=== PATIENT | female | born 1965 | race Caucasian/White ===

== ENCOUNTER 2019-12-31 09:22 | Outpatient (CLI) | payer OTHER, SELFPAY ==
--- NOTE | 2019-12-31 09:29 | MM_ITS ---
WS: [id number] BILATERAL DIGITAL SCREENING MAMMOGRAPHY WITH CAD CLINICAL INFORMATION: SCREENING HISTORY: Screening mammogram. No current complaints. COMPARISON: TECHNIQUE: Bilateral CC and MLO views. FINDINGS: The breasts are composed of heterogeneous fibroglandular density tissue, which can limit the detectio n of small underlying mass lesions. No suspicious mass, asymmetry, calcifications, or architectural d istortion. No evidence of malignancy. Punctate and lucent centered calcifications. MM/[place] [id number] IMPRESSION: BI-RADS: 2-Benign FOLLOW UP: 1 Year Follow-up Recommend return to annual screening mammography.
== END 2019-12-31 09:23 | disposition home or self-care (01) ==
LOC: RADSHAW 09:27
PROVIDERS: PCP Electrodiagnostic Medicine; Visit Provider Obstetrics & Gynecology
DX: Z12.31 Encounter for screening mammogram for malignant neoplasm of breast (principal)
CPT/HCPCS: 77067

== ENCOUNTER → 2020-06-04 13:01 | Outpatient (BNVA) | payer OTHER, SELFPAY | PROVIDERS: PCP Electrodiagnostic Medicine; Visit Provider Obstetrics & Gynecology | DX: Z01.419 Encounter for gynecological examination (general) (routine) without abnormal findings (principal) | CPT/HCPCS: 82270 ==

== ENCOUNTER 2020-12-31 07:46 | Outpatient (CLI) | payer OTHER, SELFPAY ==
--- NOTE | 2020-12-31 07:52 | MM_ITS ---
WS: [id number] Bilateral screening digital mammogram, 12/31/2020 Clinical Data: SCREENING Comparison: 12/31/2019, 12/25/2018, 12/07/2017, 12/06/2016, 12/05/2015, 11/29/2014, 12/13/2013, 11/28/2013, , 10/22/2011, 10/19/2010, 10/13/2009, 10/10/2008, 10/05/2006, 09/23/2006. Findings: The breast parenchymal pattern shows heterogeneous density. No spiculated masses or clustered calcifi cations are seen. There are no secondary signs of carcinoma. There are small lymph nodes in both axil la. MM/[place] [id number] Impression: 1. Negative bilateral mammogram unchanged. 2. Recommend annual screening mammograms. BIRADS: 1-Negative FOLLOW UP: 1 Year Follow-up The CAD checker loader was used.
== END 2020-12-31 07:47 | disposition home or self-care (01) ==
LOC: RADSHAW 07:48
PROVIDERS: PCP Electrodiagnostic Medicine; Visit Provider Electrodiagnostic Medicine
DX: Z12.31 Encounter for screening mammogram for malignant neoplasm of breast (principal)
CPT/HCPCS: 77067

== ENCOUNTER → 2021-06-18 11:21 | Outpatient (BNVA) | payer OTHER, SELFPAY | PROVIDERS: PCP Electrodiagnostic Medicine; Visit Provider Registered Nurse Neonatal Intensive Care | DX: J02.9 Acute pharyngitis, unspecified (principal) | CPT/HCPCS: 87880 ==

== ENCOUNTER → 2021-07-10 14:10 | Outpatient (BNVA) | payer OTHER, SELFPAY | PROVIDERS: PCP Electrodiagnostic Medicine; Visit Provider Nurse Practitioner | DX: J02.9 Acute pharyngitis, unspecified (principal) | CPT/HCPCS: 87880 ==

== ENCOUNTER → 2021-08-12 15:09 | Outpatient (BNVA) | payer OTHER, SELFPAY | PROVIDERS: PCP Electrodiagnostic Medicine; Visit Provider Nurse Practitioner | DX: J02.0 Streptococcal pharyngitis (principal) | CPT/HCPCS: 87070; 87400; 87880 ==

== ENCOUNTER → 2021-08-26 11:07 | Outpatient (BNVA) | payer OTHER, SELFPAY | PROVIDERS: Visit Provider Family Medicine | DX: Z76.89 Persons encountering health services in other specified circumstances (principal); Z11.4 Encounter for screening for human immunodeficiency virus [HIV]; Z11.59 Encounter for screening for other viral diseases; Z13.220 Encounter for screening for lipoid disorders; Z13.6 Encounter for screening for cardiovascular disorders; R21 Rash and other nonspecific skin eruption | CPT/HCPCS: 80053; 80061; 83036; 84443; 85025; 86803; 87806 ==

== ENCOUNTER → 2021-09-20 10:43 | Outpatient (BNVA) | payer OTHER, SELFPAY | PROVIDERS: Visit Provider Nurse Practitioner | DX: R50.9 Fever, unspecified (principal); R11.2 Nausea with vomiting, unspecified; B34.9 Viral infection, unspecified | CPT/HCPCS: 81000; 87400; 87635 ==

== ENCOUNTER → 2021-12-09 11:45 | Outpatient (BNVA) | payer OTHER, SELFPAY | PROVIDERS: PCP Family Medicine; Visit Provider Family Medicine | DX: L43.9 Lichen planus, unspecified (principal) | CPT/HCPCS: 88304 ==

== ENCOUNTER 2022-01-06 07:30 | Outpatient (CLI) | payer OTHER, SELFPAY ==
--- NOTE | 2022-01-06 07:39 | MM_ITS ---
WS: [email or web address] Exam: [place] [id number] Date/Time of Exam: 01/06/2022 7:51 AM Reason For Exam: SCREENING VIEWS: MLO and CC views both breasts. 3D digital tomosynthesis is also included in this exam. Comparison made with prior exam of 12/05/2015, 12/06/2016, 12/07/2017, 12/25/2018, 12/31/2019, 12/31/2020.. Findings: There was no sign of mass, architectural distortion or suspicious calcification in either breast. He terogeneously dense MM/[place] [id number] Impression: BI-RADS: 2-Benign FOLLOW-UP: 1 Year Follow-up This mammogram was also analyzed by the Computer Aided Detection System R2 [facility].
== END 2022-01-06 07:31 | disposition home or self-care (01) ==
LOC: RAD 07:30
PROVIDERS: PCP Family Medicine; Visit Provider Obstetrics & Gynecology
DX: Z12.31 Encounter for screening mammogram for malignant neoplasm of breast (principal)
CPT/HCPCS: 77063; 77067

== ENCOUNTER → 2022-05-24 10:42 | Outpatient (BNVA) | payer OTHER, SELFPAY | PROVIDERS: PCP Family Medicine; Visit Provider Obstetrics & Gynecology | DX: Z12.4 Encounter for screening for malignant neoplasm of cervix (principal) | CPT/HCPCS: 87624 ==

== ENCOUNTER → 2022-05-26 10:50 | Outpatient (BNVA) | payer OTHER, SELFPAY | PROVIDERS: PCP Family Medicine; Visit Provider Family Medicine | DX: E78.2 Mixed hyperlipidemia (principal); K80.20 Calculus of gallbladder without cholecystitis without obstruction; Z79.899 Other long term (current) drug therapy | CPT/HCPCS: 80053; 80061; 85025 ==

== ENCOUNTER 2023-01-10 06:56 | Outpatient (CLI) | payer OTHER, SELFPAY ==
--- NOTE | 2023-01-10 07:43 | MM_ITS ---
WS: [id number] SCREENING DIGITAL BREAST TOMOSYNTHESIS MAMMOGRAM WITH CAD HISTORY: SCREENING COMPARISON: 01/06/2022, 12/31/2020 Bilateral CC and MLO with tomosynthesis and synthetic mammography submitted. Computer aided detection analyzed. Breast composition: The breasts are heterogeneously dense, which may obscure small masses. Focal nodu lar asymmetry measuring 8 mm in the medial LEFT breast seen on the cc view. On the LEFT MLO view ther e is an area of very slight spiculation in the superior breast at middle depth. These areas do not co rrespond with each other but need to be further evaluated. Otherwise benign calcifications. MM/[place] [id number] IMPRESSION: BI-RADS: 0-Incomplete: Need additional imaging evaluation FOLLOW UP: Need Additional Imaging LEFT breast: Spot compression views (CC and MLO). True ML. Ultrasound to follow if abnormality persists.
== END 2023-01-10 06:57 | disposition home or self-care (01) ==
LOC: RAD 06:58
PROVIDERS: PCP Family Medicine; Visit Provider Family Medicine
DX: Z12.31 Encounter for screening mammogram for malignant neoplasm of breast (principal)
CPT/HCPCS: 77063; 77067

== ENCOUNTER 2023-02-22 11:43 | Outpatient (CLI) | payer OTHER, SELFPAY ==
--- NOTE | 2023-02-22 11:57 | MM_ITS ---
WS: [id number] ADDITIONAL VIEWS LEFT MAMMOGRAM with tomosynthesis. LEFT BREAST ULTRASOUND HISTORY: Left Breast Mass COMPARISON: 01/10/2023, 01/06/2022 and 12/31/2020 LEFT MAMMOGRAM: Spot compression views and true ML with tomosynthesis and sympathetic mammography. Subtle area of distortion in the superior LEFT breast completely resolves with additional imaging. Ca nnot determine whether this distortion is in the medial or lateral breast. No mass identified with th e distortion LEFT BREAST ULTRASOUND 2-D and color Doppler imaging submitted. Ultrasound directed to the superior breast in the upper outer quadrant, upper inner quadrant and at 1 2:00. No mass or distortion is identified. No shadowing. Findings on the mammogram are probably relat ed to normal fibroglandular tissue. IMPRESSION: MM/[place] [id number] BI-RADS: 3-Probably Benign FOLLOW UP: 6 Month Follow-up Recommend LEFT mammogram diagnostic evaluation in 6 months to reevaluate the ve ry subtle area of architectural distortion. No corresponding finding seen on th e CC projection or on the ultrasound. This is probably normal fibroglandular de nsity for this patient.
== END 2023-02-22 11:44 | disposition home or self-care (01) ==
PROVIDERS: PCP Family Medicine; Visit Provider Family Medicine
DX: N63.25 Unspecified lump in the left breast, overlapping quadrants (principal)
CPT/HCPCS: 76642; 77061; G0279

== ENCOUNTER → 2023-02-23 09:21 | Outpatient (BNVA) | payer OTHER, SELFPAY | PROVIDERS: PCP Family Medicine; Visit Provider Family Medicine | DX: E78.2 Mixed hyperlipidemia (principal); L43.9 Lichen planus, unspecified; Z79.899 Other long term (current) drug therapy; M62.830 Muscle spasm of back; K80.20 Calculus of gallbladder without cholecystitis without obstruction; R79.89 Other specified abnormal findings of blood chemistry; Z12.11 Encounter for screening for malignant neoplasm of colon | CPT/HCPCS: 80053; 80061; 85025 ==

== ENCOUNTER 2023-03-07 05:59 | Outpatient (CLI) | payer OTHER, SELFPAY ==
--- NOTE | 2023-03-07 06:15 | US_ITS ---
WS: [id number] ULTRASOUND ABDOMEN LIMITED CLINICAL INFORMATION: Cholelithiasis COMPARISON: None. FINDINGS: Liver Size: Normal. Craniocaudal length: 15.3 cm. Echogenicity: Coarse surface nodularity: None. Mass (size and location): None. Bile ducts Intrahepatic ducts: Normal. Common bile duct diameter: 0.3 cm. Gallbladder Cholelithiasis Gallstones: Present gallbladder sludge: None. Gallbladder wall thickening: None. Pericholecystic fluid: None. Sonographic Draper sign: Absent. Pancreas Normal as visualized. Right kidney: Normal. Hydronephrosis: None. Size: 11.1 cm x 5.1 cm x 4.4 cm. Abdominal aorta and IVC Visualized portions are normal. Ascites: None. IMPRESSION: 1. Diffuse fatty filtration of the liver. 2. Cholelithiasis. No gallbladder wall thickening or pericholecystic fluid. 3. Normal common bile duct. 4. No hydronephrosis in the RIGHT kidney.
== END 2023-03-07 06:00 | disposition home or self-care (01) ==
LOC: RAD 06:04
PROVIDERS: PCP Family Medicine; Visit Provider Family Medicine
DX: K80.20 Calculus of gallbladder without cholecystitis without obstruction (principal); K76.0 Fatty (change of) liver, not elsewhere classified
CPT/HCPCS: 76705

== ENCOUNTER 2023-04-01 09:30 | Day surgery (SDC) | payer OTHER, SELFPAY ==
[2023-04-01 10:02] VITALS: BP 135/73; PULSE 65; RESP 16; TEMP 36.3; O2SAT 97
[2023-04-01 10:03] VITALS: BMI 29.7
[2023-04-01] MEDS: sodium chloride 0.9% 1,000 ML 30 ML IV (10:11)
--- NOTE | 2023-04-01 10:58 | W.PM.OPSUD ---
Surgery/Procedure H&P Update DATE OF PROCEDURE: April 01, 2023 DATE H&P PERFORMED: 03/08/23 H&P UPDATE INFORMATION: I have reviewed H&P completed within last 30 days, I have examined patient prior to procedure and No changes to prior documentation PLANNED PROCEDURE: Operation Date: 04/01/23 10:45 [place] Procedures p [address]349 colon, G0121 screen colon A risk Z12.11(Not Applicable) - Lance Estrada, DO
--- NOTE | 2023-04-01 11:04 | ANES.PREANE2 ---
Pre-Anesthetic Assessment Height/Weight: Height 1.7 m Weight 86.183 kg Temp Pulse Resp BP Pulse Ox O2 Del Method 97.3 F L 65 16 135/73 97 Room Air 04/01/23 10:02 04/01/23 10:02 04/01/23 10:02 04/01/23 10:02 04/01/23 10:02 04/01/23 10:02 Preop Diagnosis: screening Operation Date: 04/01/23 10:45 [place] Procedures [place] [id number] colon, G0121 screen colon A risk Z12.11(Not Applicable) - Lance Estrada DO Familial anesthetic complications: none Was Beta Alonzo taken within 24 hours: N/A Was Clonidine taken within 24 hours: N/A Last intake: Intake Last Liquid Date 03/31/23 Last Liquid Time 23:00 Last Solid Date 03/30/23 Last Solid Time 20:30 Social No alcohol and No tobacco Exam alert and oriented x 3 Airway Submandibular: within normal limits Cervical ROM: within normal limits Mallampati: Class I Dentition: full History/ROS No significant history except as noted Metabolic Hyperlipidemia Anesthetic Plan ASA status: 2 Anesthesia: Anesthesia Evaluation, General and MAC Medications/Allergies Home Medications Medication Instructions Recorded Confirmed Last Taken Type cetirizine 10 mg capsule (All Day 10 mg PO DAILY PRN allergy 01/09/22 04/01/23 Unknown Rx Allergy (cetirizine)) symptoms #30 caps fluticasone propionate 50 2 spray intranasal BID PRN nasal 01/09/22 04/01/23 Unknown Rx mcg/actuation nasal congestion #16 grams spray,suspension atorvastatin 80 mg tablet See Rx Instructions .Route 09/16/22 04/01/23 03/30/23 Rx .COMPLEX #90 tabs Allergies Allergy/AdvReac Type Severity Reaction Status Date / Time azithromycin Allergy ADR-Diarrhe Verified 03/30/23 11:38 a Current Medications Generic Name Dose Route Start Last Admin Trade Name Freq PRN Reason Stop Dose Admin Sodium Chloride 1,000 mls @ 30 mls/hr 04/01/23 10:00 04/01/23 10:11 Sodium Chloride 0.9% IV 04/02/23 09:59 30 mls/hr .Q24H KOMAL Administration PFSH Anesthesia Medical History Allergic rhinitis due to allergen Herpes zoster (~01/2020) Surgical History S/P dilation and curettage (~1996) Family History Mother Hypertension Hypercholesterolemia Heart disease Colon polyp Father Hypertension Diabetes Hypothyroidism Lymphoma Colon polyp Family/Other Breast cancer Paternal Aunt Ovarian cancer Maternal Aunt Social History Smoking and tobacco/nicotine status: never used tobacco/nicotine Alcohol intake: never Substance/Drug Use: never Female Reproductive History Spontaneous abortions: No Data Anesthesia Cardiac Studies: No Data to Display
[2023-04-01 11:19] VITALS: BP 131/90; PULSE 76; RESP 18; TEMP 36.3; O2SAT 92
--- NOTE | 2023-04-01 11:25 | ANE.PACU2 ---
Inpatient post-anesthesia follow up: Airway intact: Yes Vital signs: Temperature 97.4 F Pulse Rate 74 Respiratory Rate 18 Blood Pressure 100/73 Pulse Oximetry 97 Oxygen Delivery Me thod Room Air Oxygen Flow Rate Fraction of Inspir ed Oxygen Hydration adequate: Yes Nausea and vomiting: No Pain level: 1 Mental status: Baseline
[2023-04-01 11:30] VITALS: BP 100/73; PULSE 74; RESP 18; O2SAT 97
== END 2023-04-01 11:49 | disposition home or self-care (01) ==
PROVIDERS: PCP Family Medicine; Visit Provider Surgery
PROC: 0DJD8ZZ Inspection of Lower Intestinal Tract, Via Natural or Artificial Opening Endoscopic (ICD-10-PCS; CPT 45378; principal; 2023-04-01 10:45)
DX: Z12.11 Encounter for screening for malignant neoplasm of colon (principal); K57.30 Diverticulosis of large intestine without perforation or abscess without bleeding; E78.5 Hyperlipidemia, unspecified
CPT/HCPCS: 45378; J2704; J7030

== ENCOUNTER → 2023-05-08 10:37 | Outpatient (BNVA) | payer OTHER, SELFPAY | PROVIDERS: PCP Family Medicine; Visit Provider Registered Nurse Neonatal Intensive Care | DX: J02.9 Acute pharyngitis, unspecified (principal) | CPT/HCPCS: 87880 ==

== ENCOUNTER 2023-08-16 10:17 | Outpatient (CLI) | payer OTHER, SELFPAY ==
--- NOTE | 2023-08-16 10:30 | MM_ITS ---
WS: [email or web address] ADDITIONAL VIEWS LEFT MAMMOGRAM with tomosynthesis. LEFT BREAST ULTRASOUND HISTORY: Abnormal mammo, left breast mass COMPARISON: 12/31/2020, 02/22/2023, 01/10/2023 LEFT MAMMOGRAM: Spot compression views and true ML with tomosynthesis and sympathetic mammography. Dense fibroglandular densities. The asymmetry at 12:00 persists but has not progressed. There is a lo bulated mass in the medial LEFT breast at 9:00 measuring 12 x 13 mm. This may have been present on pr ior studies but obscured by the dense tissue. Ultrasound will be performed. LEFT BREAST ULTRASOUND 2-D and color Doppler imaging submitted. In the 12:00 axis no abnormality is identified. There is no mass or distortion. At 9:00 LEFT breast t here is a lobulated complex cyst measuring 1.2 x 0.8 x 1.2 cm. There is good through transmission. No increased vascularity. This mass has not been present on the prior examinations before 2021. This do es appear to be a complex cyst. IMPRESSION: MM/[place] [id number] BI-RADS: 3-Probably Benign FOLLOW UP: 6 Month Follow-up 1. New complex cystic mass 9:00 LEFT breast has not definitely been seen on pr ior studies and may have been obscured by the overlying breast tissue. Best see n today due to the spot compression views including this area. As this is not a simple cyst recommend ultrasound follow-up in 6 months. 2. No additional follow-up is necessary for the stable asymmetry at 12:00 LEFT breast.
--- NOTE | 2023-08-16 11:05 | US_ITS ---
WS: [id number] ADDITIONAL VIEWS LEFT MAMMOGRAM with tomosynthesis. LEFT BREAST ULTRASOUND HISTORY: Abnormal mammo, left breast mass COMPARISON: 12/31/2020, 02/22/2023, 01/10/2023 LEFT MAMMOGRAM: Spot compression views and true ML with tomosynthesis and sympathetic mammography. Dense fibroglandular densities. The asymmetry at 12:00 persists but has not progressed. There is a lo bulated mass in the medial LEFT breast at 9:00 measuring 12 x 13 mm. This may have been present on pr ior studies but obscured by the dense tissue. Ultrasound will be performed. LEFT BREAST ULTRASOUND 2-D and color Doppler imaging submitted. In the 12:00 axis no abnormality is identified. There is no mass or distortion. At 9:00 LEFT breast t here is a lobulated complex cyst measuring 1.2 x 0.8 x 1.2 cm. There is good through transmission. No increased vascularity. This mass has not been present on the prior examinations before 2021. This do es appear to be a complex cyst. IMPRESSION: US/US breast LT limited* [id number] BI-RADS: 3-Probably Benign FOLLOW UP: 6 Month Follow-up 1. New complex cystic mass 9:00 LEFT breast has not definitely been seen on pr ior studies and may have been obscured by the overlying breast tissue. Best see n today due to the spot compression views including this area. As this is not a simple cyst recommend ultrasound follow-up in 6 months. 2. No additional follow-up is necessary for the stable asymmetry at 12:00 LEFT breast.
== END 2023-08-16 10:18 | disposition home or self-care (01) ==
LOC: RAD 10:17
PROVIDERS: PCP Family Medicine; Visit Provider Family Medicine
DX: N63.20 Unspecified lump in the left breast, unspecified quadrant (principal)
CPT/HCPCS: 76642; 77061; G0279

== ENCOUNTER 2024-03-13 10:31 | Outpatient (CLI) | payer OTHER, SELFPAY ==
--- NOTE | 2024-03-13 11:00 | MM_ITS ---
WS: [id number] DIAGNOSTIC BILATERAL DIGITAL BREAST TOMOSYNTHESIS MAMMOGRAPHY WITH CAD Bilateral breast ultrasound, limited HISTORY: abnormal mammo, left breast mass COMPARISON: 08/16/2023, 02/22/2023, 01/10/2023 TECHNIQUE: Bilateral craniocaudad, mediolateral oblique, and mediolateral views are submitted with to mosynthesis and SM. Spot compression LEFT CC and MLO. Computer aided detection utilized. Breast composition: The breasts are heterogeneously dense, which may obscure small masses. Reidentified is the ovoid mass with partially obscured margins along the 9:00 axis of the LEFT breast at a middle depth. Mass measures 1.3 x 0.8 x 1.1 cm. No increase in size since 01/10/2023. There are new partially obscured masses in the RIGHT breast since 01/10/2023. Mass at 12:00 measures 1 0 x 6 mm. There is an additional mass at 6:00 posteriorly. Bilateral breast ultrasound, limited. RIGHT breast: Multiple cysts are identified in the RIGHT breast including 11:00, 12:00 and 6:00. Thes e correspond to the mammographic abnormalities. The largest is at 11:00, 1 cm from the nipple measuri ng 1.2 x 0.9 x 1.1 cm. LEFT breast: Complex cystic mass is identified at 9:00, 2 cm from the nipple measuring 1.4 x 1.3 x 0. 7 cm. This cyst was also identified on 08/16/2023 without change. MM/MM diag BI tomosynthesis [id number] IMPRESSION: BI-RADS: 2 - Benign FOLLOW UP: 1 Year Follow-up Return to annual screening mammography. No solid mass.
--- NOTE | 2024-03-13 11:30 | US_ITS ---
WS: [id number] DIAGNOSTIC BILATERAL DIGITAL BREAST TOMOSYNTHESIS MAMMOGRAPHY WITH CAD Bilateral breast ultrasound, limited HISTORY: abnormal mammo, left breast mass COMPARISON: 08/16/2023, 02/22/2023, 01/10/2023 TECHNIQUE: Bilateral craniocaudad, mediolateral oblique, and mediolateral views are submitted with to mosynthesis and SM. Spot compression LEFT CC and MLO. Computer aided detection utilized. Breast composition: The breasts are heterogeneously dense, which may obscure small masses. Reidentified is the ovoid mass with partially obscured margins along the 9:00 axis of the LEFT breast at a middle depth. Mass measures 1.3 x 0.8 x 1.1 cm. No increase in size since 01/10/2023. There are new partially obscured masses in the RIGHT breast since 01/10/2023. Mass at 12:00 measures 1 0 x 6 mm. There is an additional mass at 6:00 posteriorly. Bilateral breast ultrasound, limited. RIGHT breast: Multiple cysts are identified in the RIGHT breast including 11:00, 12:00 and 6:00. Thes e correspond to the mammographic abnormalities. The largest is at 11:00, 1 cm from the nipple measuri ng 1.2 x 0.9 x 1.1 cm. LEFT breast: Complex cystic mass is identified at 9:00, 2 cm from the nipple measuring 1.4 x 1.3 x 0. 7 cm. This cyst was also identified on 08/16/2023 without change. US/US breast BI limited* [id number] IMPRESSION: BI-RADS: 2 - Benign FOLLOW UP: 1 Year Follow-up Return to annual screening mammography. No solid mass.
== END 2024-03-13 10:32 | disposition home or self-care (01) ==
PROVIDERS: PCP Family Medicine; Visit Provider Family Medicine
DX: N63.21 Unspecified lump in the left breast, upper outer quadrant (principal); R92.333 Mammographic heterogeneous density, bilateral breasts; N60.11 Diffuse cystic mastopathy of right breast
CPT/HCPCS: 76642; 77062; G0279

== ENCOUNTER → 2024-07-22 11:22 | Outpatient (BNVA) | payer OTHER, SELFPAY | PROVIDERS: PCP Family Medicine | DX: N39.0 Urinary tract infection, site not specified (principal) | CPT/HCPCS: 81000 ==

== ENCOUNTER → 2024-08-07 09:55 | Outpatient (BNVA) | payer OTHER, SELFPAY | PROVIDERS: PCP Family Medicine; Visit Provider Family Medicine | DX: Z00.00 Encounter for general adult medical examination without abnormal findings (principal); R73.09 Other abnormal glucose; Z51.81 Encounter for therapeutic drug level monitoring; Z13.6 Encounter for screening for cardiovascular disorders | CPT/HCPCS: 80053; 80061; 82306; 83036; 85025 ==

== ENCOUNTER 2024-08-22 12:31 | Outpatient (CLI) | payer OTHER, SELFPAY ==
--- NOTE | 2024-08-22 13:00 | XR_ITS ---
WS: [email or web address] SCREENING DEXA SCAN [employer] CLINICAL INFORMATION: Postmenopausal COMPARISON: None. FINDINGS: The L1-L4 bone mineral density measures 1.089 g/cm2. This corresponds to a T score score of -0.8 and Z score of -0.5. Left femoral neck bone mineral density measures 0.966 g/cm2. This corresponds to a T score of -0.3 and Z score of -0.1. Right femoral neck bone mineral density measures 0.988 g/cm2. This corresponds to a T score -0.2of and Z score of 0.1. Mean femoral neck bone mineral density measures 0.977 g/cm2. This corresponds to a T score of -0.2 and Z score of 0.0. XR/XR DEXA axial skeleton* [id number] IMPRESSION: Normal bone mineralization. Patient's FRAX calculated 10 year probability for major osteoporotic fracture i s 6.3% and osteoporotic hip fracture is 0.2%.
== END 2024-08-22 12:32 | disposition home or self-care (01) ==
LOC: RAD 12:32
PROVIDERS: PCP Family Medicine; Visit Provider Family Medicine
DX: Z78.0 Asymptomatic menopausal state (principal)
CPT/HCPCS: 77080

== ENCOUNTER → 2024-08-29 15:55 | Outpatient (BNVA) | payer OTHER, SELFPAY | PROVIDERS: PCP Family Medicine; Visit Provider Nurse Practitioner Women's Health | DX: R68.89 Other general symptoms and signs (principal) | CPT/HCPCS: 84439; 84443; 84481; 85025 ==

== ENCOUNTER 2025-03-22 12:56 | Outpatient (CLI) | payer OTHER, SELFPAY ==
--- NOTE | 2025-03-22 13:06 | MM_ITS ---
WS: [email or web address] BILATERAL 3D TOMOSYNTHESIS DIGITAL SCREENING MAMMOGRAPHY WITH CAD CLINICAL INFORMATION: SCREENING HISTORY: Screening mammogram. No current complaints. COMPARISON: 2023 TECHNIQUE: Bilateral CC and MLO views. FINDINGS: The breasts are composed of heterogeneous fibroglandular density tissue, which can limit the detection of small underlying mass lesions. New or significantly progressed ovoid lesion anterior RIGHT breast near the 12 o'clock position measuring 1.2 cm. Patient with cysts in this area previously, however this lesion appears new and considering size recommend further evaluation with ultrasound LEFT breast is unchanged. MM/MM [facility] tomosynthesis [id number] IMPRESSION: DENSITY: The breasts are heterogeneously dense, which may obscure small masses. BI-RADS: 0 - Incomplete: Need additional imaging evaluation FOLLOW UP: Need Additional Imaging Recommend ultrasound subareolar RIGHT breast at the 12 o'clock position with at tention to the new 1.2 cm nodule
== END 2025-03-22 12:57 | disposition home or self-care (01) ==
LOC: RAD 12:59
PROVIDERS: PCP Family Medicine; Visit Provider Family Medicine
DX: Z12.31 Encounter for screening mammogram for malignant neoplasm of breast (principal); R92.323 Mammographic fibroglandular density, bilateral breasts; R92.333 Mammographic heterogeneous density, bilateral breasts; N63.12 Unspecified lump in the right breast, upper inner quadrant
CPT/HCPCS: 77063; 77067

== ENCOUNTER 2025-04-11 07:47 | Outpatient (CLI) | payer OTHER, SELFPAY ==
--- NOTE | 2025-04-11 08:30 | MM_ITS ---
WS: [email or web address] RIGHT 3D TOMOSYNTHESIS DIGITAL MAMMOGRAPHY WITH CAD CLINICAL INFORMATION: R92.8 - Other abnormal and inconclusive findings on diagn... HISTORY: Additional views COMPARISON: 2024 TECHNIQUE: 3 views of the right breast were obtained. FINDINGS: The right breast is composed of heterogeneous fibroglandular density tissue, which can limit the detection of small underlying mass lesions. Stable 1.2 cm ovoid lesion near the 12 o'clock position. Ultrasound described below ULTRASOUND BREAST RIGHT TECHNIQUE: Ultrasound right breast focused area of concern. CLINICAL INFORMATION: R92.8 - Other abnormal and inconclusive findings on diagn... FINDINGS: Ultrasound RIGHT breast 12 o'clock position. Ovoid simple cyst at the 12 o'clock position measuring 1.0 x 0.8 x 0.9 cm corresponds to the mammographic findings. This has a benign appearance. No other suspicious findings. MM/MM diag RT tomosynthesis [id number] IMPRESSION: DENSITY: The breasts are heterogeneously dense, which may obscure small masses. BI-RADS: 2 - Benign FOLLOW UP: 1 Year Follow-up Recommend return to annual screening mammography.
--- NOTE | 2025-04-11 09:00 | US_ITS ---
WS: [email or web address] RIGHT 3D TOMOSYNTHESIS DIGITAL MAMMOGRAPHY WITH CAD CLINICAL INFORMATION: R92.8 - Other abnormal and inconclusive findings on diagn... HISTORY: Additional views COMPARISON: 2024 TECHNIQUE: 3 views of the right breast were obtained. FINDINGS: The right breast is composed of heterogeneous fibroglandular density tissue, which can limit the detection of small underlying mass lesions. Stable 1.2 cm ovoid lesion near the 12 o'clock position. Ultrasound described below ULTRASOUND BREAST RIGHT TECHNIQUE: Ultrasound right breast focused area of concern. CLINICAL INFORMATION: R92.8 - Other abnormal and inconclusive findings on diagn... FINDINGS: Ultrasound RIGHT breast 12 o'clock position. Ovoid simple cyst at the 12 o'clock position measuring 1.0 x 0.8 x 0.9 cm corresponds to the mammographic findings. This has a benign appearance. No other suspicious findings. US/US breast RT limited* [id number] IMPRESSION: DENSITY: The breasts are heterogeneously dense, which may obscure small masses. BI-RADS: 2 - Benign FOLLOW UP: 1 Year Follow-up Recommend return to annual screening mammography.
== END 2025-04-11 07:48 | disposition home or self-care (01) ==
LOC: RAD 07:49
PROVIDERS: PCP Family Medicine; Visit Provider Nurse Practitioner Women's Health
DX: R92.8 Other abnormal and inconclusive findings on diagnostic imaging of breast (principal); R92.333 Mammographic heterogeneous density, bilateral breasts; N60.01 Solitary cyst of right breast
CPT/HCPCS: 76642; 77061; G0279